=== PATIENT | male | born 1950 | race Caucasian/White ===

== ENCOUNTER 2018-10-28 09:12 | Day surgery (SDC) | payer MEDICARE, BC ==
[~2018-10-28 09:12] MED LIST: Bupivacaine 0.5% 50 ML MDV ONE; Lidocaine 1% with EPINEPHrine 1:100,000 50 ML MDV ONE
[2018-10-28] MEDS ORDERED: Clindamycin Phosphate 900 MG in Sodium Chloride 0.9% 100 ML IV ONE (10:00)
[2018-10-28] MEDS ORDERED: Lactated Ringers 1,000 ML IV SCH (10:00)
[2018-10-28] MEDS ORDERED: fentaNYL 100 MCG/2 ML SDV ONE (11:05)
[2018-10-28] MEDS ORDERED: Propofol 200 MG/20 ML SDV ONE (11:05)
[2018-10-28] MEDS ORDERED: Midazolam 1 MG/ML 2 ML SDV ONE (11:05)
[2018-10-28] MEDS ORDERED: Acetaminophen/HYDROcodone 325-5 MG Tab PO PRN (13:27)
--- NOTE | 2018-10-29 08:21 | OR ---
DATE OF PROCEDURE: 10/28/2018 PREOPERATIVE DIAGNOSIS: Reducible right inguinal hernia. POSTOPERATIVE DIAGNOSIS: Reducible direct right inguinal hernia. PROCEDURE: Repair of reducible direct right inguinal hernia with a large PerFix mesh plug and patch. SURGEON: Rad Carpenter MD ANESTHESIA: IV anesthesia with monitored anesthesia care. INDICATION: This 68-year-old white male was found to have a reducible right inguinal hernia. He denies predisposing factors for hernia formation and there are no signs or symptoms of incarceration or obstruction. He is admitted for repair of his right inguinal hernia with a mesh plug and patch. I counseled him for this, including risks and alternatives, and he gave his informed consent to proceed. PROCEDURE IN DETAIL: After adequate IV anesthesia was obtained, the patient's lower abdomen, groin, and genitalia were prepped and draped in the usual sterile fashion. Time-out was held. Lidocaine 1% with epinephrine in a 50:50 mix with 0.5% Marcaine was infiltrated about the right groin. A right groin incision was made 2 cm superior and medial to the inguinal ligament. This was carried deep using Bovie cautery to the external oblique. The external oblique was opened parallel to course of its fibers from the internal to external ring. The spermatic cord was mobilized, and a Jeremie drain placed about it. The cremasteric fibers were longitudinally to reveal no evidence of an indirect hernia sac. The ilioinguinal nerve was divided. The floor was noted to have a hernia defect. This was palpated. A large PerFix mesh plug manufactured by [employer] was obtained. This was placed down under the defect and anchored to the underside of the fascia with horizontal mattress stitches of 2-0 Vicryl. The internal leaves of the plug were approximated to the associated fascia. All looked well. The onlay patch was obtained, cut to appropriate length, and placed over the inguinal floor. It was anchored to itself around the spermatic cord with interrupted stitches of 2-0 Vicryl. The spermatic cord was returned to the inguinal canal. The external oblique was closed over it with a running stitch of 3-0 Vicryl, interrupted 3-0 Vicryl stitches were placed to approximate the Arian's fascia. 4-0 Vicryl using a subcuticular stitch was placed to approximate the skin. Dermabond was applied. The patient tolerated the procedure well and was brought to recovery room in good condition. Rad Carpenter MD /[id number] MTDD
== END 2018-10-28 15:12 | disposition home or self-care (01) ==
LOC: JP.SDS 09:12
PROVIDERS: ATTEND Surgery
DX: K40.90 Unilateral inguinal hernia, without obstruction or gangrene, not specified as recurrent (principal); K21.9 Gastro-esophageal reflux disease without esophagitis; G25.81 Restless legs syndrome; E66.9 Obesity, unspecified; Z68.33 Body mass index [BMI] 33.0-33.9, adult; Z88.0 Allergy status to penicillin; Z79.82 Long term (current) use of aspirin; Z79.899 Other long term (current) drug therapy
CPT/HCPCS: 49505; A9270; C1781; J2250; J2704; J3010; J3490; J7030; J7120